=== PATIENT | male | born 1975 | race Caucasian/White ===

== ENCOUNTER 2016-12-02 16:09 | Emergency (ER) | payer BC, OTHER ==
--- NOTE | 2016-12-02 16:17 | PDOC ---
Rapid Medical Evaluation Time Seen by Provider: 12/02/16 16:12 Medical Evaluation: 12/02/16 16:14 Otherwise healthy 41 year old male presenting with inability to swallow and sensation of choking today. He reports he has difficulty swallowing even water. He had vomiting/diarrhea Thursday-Thursday, then developed sore throat; throat is no longer sore, but now has inability to swallow. No respiratory distress. No drooling, stridor, or hoarseness. V/s unremarkable. -CXR -Basic labs -To main ED for further evaluation
[2016-12-02 16:19] VITALS: BMI 24.3
[2016-12-02 16:44] LABS: BASOPHIL 0.9 % (0-2.0); EOSINOPHIL 2.9 % (0-4.5); MCH 31.4 pg (25.7-33.7); MCHC 33.9 g/dl (32.0-35.9); MEAN CELL VOLUME 92.5 fl (80-96); MEAN PLT VOLUME 9.3 fl (7.5-11.1); NEUTROPHILS 49.2 % (42.8-82.8); PLATELET COUNT 201 K/MM3 (134-434); RDW 14.1 % (11.9-15.9); WHITE BLOOD COUNT 8.6 K/mm3 (4.0-10.0)
[2016-12-02 17:08] LABS: INR 1.02 (0.82-1.09); PROTHROMBIN TIME (PATIENT) 11.2 SEC (9.98-11.88)
[2016-12-02] MEDS ORDERED: GlUCAGON HUMAN RECOMBINANT 1 MG/VIAL ONE (17:30)
[2016-12-02] MEDS ORDERED: PANTOPRAZOLE SODIUM 100 ML IVPB ONE (17:35)
[2016-12-02 17:39] LABS: ANION GAP 11 (8-16); CALCIUM 8.7 mg/dL (8.5-10.1); CO2 27 mmol/L (21-32); CREATININE 0.9 mg/dL (0.7-1.3); GLUCOSE,RANDOM 89 mg/dL (74-106); SGOT/AST 46 U/L (15-37); SGPT/ALT 40 U/L (12-78); TOT PROT 7.4 g/dl (6.4-8.2)
[2016-12-02 17:45] LABS: ALK PHOS 56 U/L (45-117); BILIRUBIN,TOTAL 0.6 mg/dL (0.2-1.0)
[2016-12-02] MEDS ORDERED: GLUCAGON 1 MG KIT IVPUSH STA (18:03)
[2016-12-02] MEDS ORDERED: PANTOPRAZOLE SODIUM 40 MG in SODIUM CHLORIDE 100 ML IVPB ONE (18:03)
--- NOTE | 2016-12-02 18:03 | PDOC ---
History of Present Illness <GermanHina Kadi - Last Filed: 12/02/16 18:33> - General History Source: Patient Exam Limitations: No Limitations - History of Present Illness Initial Comments: 12/02/16 18:34 Patient is a 41 year old male with no significant past medical history who presents to the ED with inability to swallowing and choking sensation. Patent reports nausea, vomiting and diarrhea since 11/28 after eating a roast beef sandwich, but denies any abdominal pain. Patient notes that after Thursday he developed difficulty swallowing. He notes that he is not able to eat anything because he feels like it is stuck mid chest. He notes that he can swallow small amounts of water but if he drinks in large amounts he has difficulty swallowing. PSH:Back surgery in april L5-S1 <Tuyet Tsang - Last Filed: 12/02/16 18:37> - General Chief Complaint: Dysphagia Stated Complaint: PCP SENT/DYSPHAGIA Time Seen by Provider: 12/02/16 16:12 Past History - Psycho/Social/Smoking Cessation Hx Anxiety: No Suicidal Ideation: No Smoking History: Current every day smoker Have you smoked in the past 12 months: Yes Number of Cigarettes Smoked Daily: 20 Information on smoking cessation initiated: No Hx Alcohol Use: No Drug/Substance Use Hx: No Substance Use Type: Alcohol <Hina Porter Kadi - Last Filed: 12/02/16 18:33> <Tyuet Tsang - Last Filed: 12/02/16 18:37> - Past Medical History Allergies/Adverse Reactions: Allergies Allergy/AdvReac Type Severity Reaction Status Date / Time No Known Allergies Allergy Verified 12/02/16 16:13 Home Medications: Ambulatory Orders NK [No Known Home Medication] 12/02/16 Review of Systems - Review of Systems Able to Perform ROS?: Yes Comments:: 12/02/16 18:35 CONSTITUTIONAL: Absent: fever, chills, diaphoresis, generalized weakness, malaise, loss of appetite HEENT: Present: difficulty swallowing Absent: rhinorrhea, nasal congestion, throat pain, throat swelling, mouth swelling, ear pain, eye pain, visual Changes CARDIOVASCULAR: Absent: chest pain, syncope, palpitations, irregular heart rate, lightheadedness , peripheral edema RESPIRATORY: Absent: cough, shortness of breath, dyspnea with exertion, orthopnea, wheezing, stridor, hemoptysis GASTROINTESTINAL: Present: nausea, vomiting, diarrhea Absent: abdominal pain, abdominal distension, constipation, melena, hematochezia GENITOURINARY: Absent: dysuria, frequency, urgency, hesitancy, hematuria, flank pain, genital pain MUSCULOSKELETAL: Absent: myalgia, arthralgia, joint swelling SKIN: Absent: rash, itching, pallor HEMATOLOGIC/IMMUNOLOGIC: Absent: easy bleeding, easy bruising, lymphadenopathy, frequent infections ENDOCRINE: Absent: unexplained weight gain, unexplained weight loss, heat intolerance, cold intolerance NEUROLOGIC: Absent: headache, focal weakness or paresthesias, dizziness, unsteady gait, seizure, mental status changes, bladder or bowel incontinence PSYCHIATRIC: Absent: anxiety, depression, suicidal or homicidal ideation, hallucinations. <Tuyet Tsang - Last Filed: 12/02/16 18:37> *Physical Exam - Vital Signs Last Vital Signs Temp Pulse Resp BP Pulse Ox 98.3 F 91 H 18 148/94 100 12/02/16 16:13 12/02/16 16:13 12/02/16 16:13 12/02/16 16:13 12/02/16 16:13 <Hina Porter - Last Filed: 12/02/16 18:33> - Vital Signs Last Vital Signs Temp Pulse Resp BP Pulse Ox 98.3 F 91 H 18 148/94 100 12/02/16 16:13 12/02/16 16:13 12/02/16 16:13 12/02/16 16:13 12/02/16 16:13 - Physical Exam Comments: 12/02/16 18:36 GENERAL: Well developed, well nourished. Awake and alert. No acute distress. HEENT: Normocephalic, atraumatic. PERRLA, EOMI. No conjunctival pallor. Sclera are non- icteric. Moist mucous membranes. Oropharynx is clear. NECK: Supple. Full ROM. No JVD. Carotid pulses 2+ and symmetric, without bruits. No thyromegaly. No lymphadenopathy. CARDIOVASCULAR: Regular rate and rhythm. No murmurs, rubs, or gallops. Distal pulses are 2+ and symmetric. PULMONARY: No evidence of respiratory distress. Lungs clear to auscultation bilaterally. No wheezing, rales or rhonchi. ABDOMINAL: Soft. Non-tender. Non-distended. No rebound or guarding. No organomegaly. Normoactive bowel sounds. MUSCULOSKELETAL Normal range of motion at all joints. No bony deformities or tenderness. No CVA tenderness. EXTREMITIES: No cyanosis. No clubbing. No edema. No calf tenderness. SKIN: Warm and dry. Normal capillary refill. No rashes. No jaundice. NEUROLOGICAL: Alert, awake, appropriate. Cranial nerves 2-12 intact. No deficits to light touch and temperature in face, upper extremities and lower extremities. No motor deficits in the in face, upper extremities and lower extremities. Normoreflexic in the upper and lower extremities. Normal speech. Toes are down-going bilaterally. Gait is normal without ataxia. PSYCHIATRIC: Cooperative. Good eye contact. Appropriate mood and affect. <Tuyet Tsang - Last Filed: 12/02/16 18:37> ED Treatment Course - LABORATORY CBC & Chemistry Diagram: 12/02/16 16:00 12/02/16 16:00 - ADDITIONAL ORDERS Additional order review: Laboratory Results 12/02/16 12/02/16 16:00 16:00 INR 1.02 Sodium 140 Potassium 4.0 Chloride 102 Carbon Dioxide 27 Anion Gap 11 BUN 10 Creatinine 0.9 Creat Clearance w eGFR > 60 Random Glucose 89 Calcium 8.7 Total Bilirubin 0.6 AST 46 H ALT 40 Alkaline Phosphatase 56 Total Protein 7.4 Albumin 4.0 12/02/16 16:00 RBC 5.11 MCV 92.5 MCHC 33.9 RDW 14.1 MPV 9.3 Neutrophils % 49.2 Lymphocytes % 35.5 Monocytes % 11.5 H Eosinophils % 2.9 Basophils % 0.9 <Hina Porter - Last Filed: 12/02/16 18:33> - LABORATORY CBC & Chemistry Diagram: 12/02/16 16:00 12/02/16 16:00 - ADDITIONAL ORDERS Additional order review: Laboratory Results 12/02/16 12/02/16 16:00 16:00 INR 1.02 Sodium 140 Potassium 4.0 Chloride 102 Carbon Dioxide 27 Anion Gap 11 BUN 10 Creatinine 0.9 Creat Clearance w eGFR > 60 Random Glucose 89 Calcium 8.7 Total Bilirubin 0.6 AST 46 H ALT 40 Alkaline Phosphatase 56 Total Protein 7.4 Albumin 4.0 12/02/16 16:00 RBC 5.11 MCV 92.5 MCHC 33.9 RDW 14.1 MPV 9.3 Neutrophils % 49.2 Lymphocytes % 35.5 Monocytes % 11.5 H Eosinophils % 2.9 Basophils % 0.9 - Medications Given in the ED: ED Medications Discontinued Medications Generic Name Dose Route Start Last Admin Trade Name Fausto PRN Reason Stop Dose Admin Glucagon 1 mg 12/02/16 18:03 12/02/16 18:04 Glucagon - IVPUSH 12/02/16 18:04 1 mg ONCE STA Administration <Tuyet Tsang - Last Filed: 12/02/16 18:37> Medical Decision Making - Medical Decision Making 12/02/16 18:28 41 yo male has had dysphagia for last 2 days -it was not preceded by choking on food -he finds that even swallowing fluids quickly is a problem -cxr no mass, no infiltrates normal exam labs unremarkable spoke w Dr Sequeira and the pt will follow up in their office this week -pt is able to swallow his own saliva -he denies fever,chills, any focal neuro problems <Hina Porter - Last Filed: 12/02/16 18:33> - Medical Decision Making 12/02/16 18:[address] Sequeira. Patient will follow up as outpatient with Dr. Sequeira. <Tuyet Tsang - Last Filed: 12/02/16 18:37> *DC/Admit/Observation/Transfer <Hina Porter - Last Filed: 12/02/16 18:33> - Attestations Scribe Attestion: 12/02/16 18:37 Documentation prepared by ZOË Urbina, acting as medical claims assistant for Hina Porter MD. <Tuyet Tsang - Last Filed: 12/02/16 18:37> Diagnosis at time of Disposition: Dysphagia Qualifiers: Dysphagia type: esophageal phase Qualified Code(s): R13.14 - Dysphagia, pharyngoesophageal phase - Referrals Referrals: Laura Sequeira MD [Staff Physician] - Sunday Rosales DO [Staff Physician] - - Patient Instructions Printed Discharge Instructions: DI for Esophageal Dysphagia Additional Instructions: PLEASE FOLLOW UP WITH THE [facility]
[2016-12-02 18:57] VITALS: BP 140/82; PULSE 81; TEMP 98.5
== END 2016-12-02 18:57 | disposition home or self-care (01) ==
LOC: JER 16:09
PROC: 3E033GC Introduction of Other Therapeutic Substance into Peripheral Vein, Percutaneous Approach (ICD-10-PCS; principal; 2016-12-02)
DX: R13.14 Dysphagia, pharyngoesophageal phase (principal); F17.210 Nicotine dependence, cigarettes, uncomplicated
CPT/HCPCS: 36415; 71020-TC; 80053; 85025; 85610; 86850; 86900; 86901; 99283-25

== ENCOUNTER 2023-01-12 04:28 | Day surgery (SDC) | payer OTHER ==
[2023-01-08 12:55] VITALS: BMI 27.9
[2023-01-12] MEDS ORDERED: ceFAZolin SODIUM 1 GM VIAL ONE ×2 (08:21)
[2023-01-12 08:23] VITALS: RESP 18
[2023-01-12 08:55] LABS: INR 0.98 (0.83-1.09); PROTHROMBIN TIME (PATIENT) 11.4 SEC (9.7-13.0)
[2023-01-12 08:58] LABS: ACTIVATED PTT 27.4 SECONDS (25.2-36.5)
[2023-01-12] MEDS ORDERED: BUPIVACAINE HCL/PF 0.25% (2.5MG/ML) 10 ML VIAL ONE (09:05)
[2023-01-12] MEDS ORDERED: ACETAMINOPHEN INJECTION 100 ML IVPB ONE (09:51)
[2023-01-12] MEDS ORDERED: MIDAZOLAM HCL 2 MG/2 ML SINGLE DOSE VIAL ONE (10:02)
[2023-01-12] MEDS ORDERED: ceFAZolin SODIUM 1 GM VIAL IVPB ONE (10:30)
[2023-01-12] MEDS ORDERED: NEOSTIGMINE METHYLSULFATE 0.5 MG/1 ML - 10 ML MDV ONE (10:42)
[2023-01-12] MEDS ORDERED: PROPOFOL 20 ML ONE (10:46)
[2023-01-12 16:51] VITALS: BP 126/72; PULSE 74; TEMP 98.2
== END 2023-01-12 16:51 | disposition home or self-care (01) ==
LOC: JASU-SURG 04:28
PROVIDERS: ATTEND Surgery
PROC: 8E0W4CZ Robotic Assisted Procedure of Trunk Region, Percutaneous Endoscopic Approach (ICD-10-PCS; 2023-01-12)
PROC: 0WUF4JZ Supplement Abdominal Wall with Synthetic Substitute, Percutaneous Endoscopic Approach (ICD-10-PCS; principal; 2023-01-12 12:00)
DX: K42.9 Umbilical hernia without obstruction or gangrene (principal)
CPT/HCPCS: 36415; 85610; 85730; 86850; 86900; 86901; 94760

== ENCOUNTER 2024-02-01 04:35 | Day surgery (SDC) | payer OTHER ==
[2024-01-28 13:37] VITALS: BMI 30.5
[2024-02-01 08:55] VITALS: TEMP 97.8
[2024-02-01 09:25] VITALS: BP 105/62; PULSE 65; RESP 14
== END 2024-02-01 09:50 | disposition home or self-care (01) ==
LOC: JASU-ENDO 04:35
PROVIDERS: ATTEND Internal Medicine Gastroenterology
PROC: 0DBN8ZX Excision of Sigmoid Colon, Via Natural or Artificial Opening Endoscopic, Diagnostic (ICD-10-PCS; 2024-02-01)
PROC: 0DB98ZX Excision of Duodenum, Via Natural or Artificial Opening Endoscopic, Diagnostic (ICD-10-PCS; 2024-02-01)
PROC: 0DB78ZX Excision of Stomach, Pylorus, Via Natural or Artificial Opening Endoscopic, Diagnostic (ICD-10-PCS; 2024-02-01)
PROC: 0DB68ZX Excision of Stomach, Via Natural or Artificial Opening Endoscopic, Diagnostic (ICD-10-PCS; 2024-02-01)
PROC: 0DBM8ZX Excision of Descending Colon, Via Natural or Artificial Opening Endoscopic, Diagnostic (ICD-10-PCS; principal; 2024-02-01 08:00)
DX: Z12.11 Encounter for screening for malignant neoplasm of colon (principal); D12.4 Benign neoplasm of descending colon; Z63.5 Disruption of family by separation and divorce; K57.30 Diverticulosis of large intestine without perforation or abscess without bleeding; K64.8 Other hemorrhoids; K29.50 Unspecified chronic gastritis without bleeding; K31.7 Polyp of stomach and duodenum
CPT/HCPCS: 88305-TC; 88342-TC

== ENCOUNTER 2024-02-04 18:27 | Inpatient (IN) | payer OTHER ==
[2024-02-04 18:34] VITALS: BMI 29.5
[2024-02-04] MEDS ORDERED: ONDANSETRON 4 MG/2 ML VIAL ONE (19:44)
[2024-02-04] MEDS ORDERED: MAGNESIUM SULFATE IN WATER 2 GM/50 ML IVPB IVPB ONE (19:45)
[2024-02-04] MEDS ORDERED: PANTOPRAZOLE SODIUM 40 MG VIAL ONE (19:47)
[2024-02-04 19:58] LABS: BASO % 0.7 % (0-2.0); EOS % 3.3 % (0-4.5); HEMATOCRIT 32.7 % (35.4-49); HEMOGLOBIN 11.3 GM/dL (11.7-16.9); MCH 31.4 pg (25.7-33.7); MCHC 34.6 g/dl (32.0-35.9); MEAN CELL VOLUME 90.9 fl (80-96); MEAN PLT VOLUME 9.4 fl (7.5-11.1); MONO % 10.7 % (3.8-10.2); NEUT % 52.3 % (42.8-82.8); PLATELET COUNT 194 10^3/uL (134-434); RDW 13.9 % (11.9-15.9); WHITE BLOOD COUNT 9.7 K/mm3 (4.0-10.0)
[2024-02-04] MEDS: PANTOPRAZOLE SODIUM 40 MG VIAL IVPUSH ONE (20:00)
[2024-02-04] MEDS: LACTATED RINGERS SOLUTION 1000 ML INFUS.BAG IV ONE (20:00)
[2024-02-04] MEDS: ONDANSETRON 4 MG/2 ML VIAL IVPUSH ONE (20:00)
[2024-02-04 20:06] LABS: POTASSIUM 3.7 mmol/L (3.5-5.1)
[2024-02-04 20:08] LABS: CALCIUM 8.9 mg/dL (8.5-10.1)
[2024-02-04 20:09] LABS: ALBUMIN 3.6 g/dl (3.4-5.0); MAGNESIUM 1.8 mg/dL (1.8-2.4)
[2024-02-04 20:10] LABS: INR 1.02 (0.83-1.09); PROTHROMBIN TIME (PATIENT) 11.7 SEC (9.7-13.0)
[2024-02-04 20:11] LABS: PHOSPHOROUS 2.6 mg/dL (2.5-4.9)
[2024-02-04 20:12] LABS: CREATININE 1.1 mg/dL (0.55-1.3)
[2024-02-04 20:13] LABS: ACTIVATED PTT 26.7 SECONDS (25.2-36.5); BILIRUBIN,TOTAL 0.3 mg/dL (0.2-1); TOT PROT 6.6 g/dl (6.4-8.2)
[2024-02-04] MEDS: LACTATED RINGERS SOLUTION 1,000 ML/1,000 ML INFUS.BAG IV SCH (20:45)
[2024-02-04] MEDS ORDERED: PANTOPRAZOLE SODIUM 40 MG/100 ML BAG IVPB ONE (22:11)
[2024-02-04] MEDS: PANTOPRAZOLE SODIUM 40 MG VIAL IVPUSH SCH (22:24)
[2024-02-05 00:57] LABS: BASO % 0.8 % (0-2.0); EOS % 3.8 % (0-4.5); HEMATOCRIT 27.4 % (35.4-49); HEMOGLOBIN 9.5 GM/dL (11.7-16.9); LYMPH % 40.3 % (8-40); MCH 31.2 pg (25.7-33.7); MCHC 34.6 g/dl (32.0-35.9); MEAN CELL VOLUME 90.4 fl (80-96); MEAN PLT VOLUME 8.9 fl (7.5-11.1); MONO % 10.6 % (3.8-10.2); NEUT % 44.5 % (42.8-82.8); PLATELET COUNT 164 10^3/uL (134-434); RBC 3.04 M/mm3 (4.00-5.60); WHITE BLOOD COUNT 8.5 K/mm3 (4.0-10.0)
[2024-02-05 07:01] LABS: EOS % 4.8 % (0-4.5); HEMATOCRIT 26.8 % (35.4-49); HEMOGLOBIN 9.2 GM/dL (11.7-16.9); LYMPH % 37.9 % (8-40); MCH 31.4 pg (25.7-33.7); MCHC 34.3 g/dl (32.0-35.9); MEAN CELL VOLUME 91.4 fl (80-96); MEAN PLT VOLUME 9.2 fl (7.5-11.1); MONO % 11.4 % (3.8-10.2); NEUT % 44.9 % (42.8-82.8); PLATELET COUNT 154 10^3/uL (134-434); RBC 2.93 M/mm3 (4.00-5.60); RDW 14.1 % (11.9-15.9)
[2024-02-05 07:31] LABS: ALBUMIN 2.9 g/dl (3.4-5.0)
[2024-02-05 07:32] LABS: CALCIUM 7.7 mg/dL (8.5-10.1); MAGNESIUM 1.8 mg/dL (1.8-2.4)
[2024-02-05 07:33] LABS: BLOOD UREA NITROGEN 25.8 mg/dL (7-18)
[2024-02-05 07:35] LABS: CREATININE 0.9 mg/dL (0.55-1.3); PHOSPHOROUS 2.4 mg/dL (2.5-4.9)
[2024-02-05 07:37] LABS: BILIRUBIN,TOTAL 0.4 mg/dL (0.2-1)
[2024-02-05 07:38] LABS: TOT PROT 5.2 g/dl (6.4-8.2)
[2024-02-05] MEDS ORDERED: ENOXAPARIN NA (PORCINE) 40 MG/0.4 ML DISP.SYRIN SQ SCH (10:00)
[2024-02-05] MEDS: NAPH,MB-DB/K PH,MBDB POWDER PACKET PO ONE (10:41)
[2024-02-05 13:00] LABS: BASO % 0.9 % (0-2.0); EOS % 5.6 % (0-4.5); HEMATOCRIT 28.4 % (35.4-49); HEMOGLOBIN 9.8 GM/dL (11.7-16.9); LYMPH % 44.2 % (8-40); MCH 31.1 pg (25.7-33.7); MCHC 34.4 g/dl (32.0-35.9); MEAN CELL VOLUME 90.5 fl (80-96); MEAN PLT VOLUME 8.7 fl (7.5-11.1); MONO % 9.4 % (3.8-10.2); NEUT % 39.9 % (42.8-82.8); PLATELET COUNT 157 10^3/uL (134-434); RBC 3.14 M/mm3 (4.00-5.60); RDW 13.9 % (11.9-15.9); WHITE BLOOD COUNT 6.3 K/mm3 (4.0-10.0)
[2024-02-05 15:27] LABS: HEMATOCRIT 25.8 % (35.4-49); HEMOGLOBIN 8.9 GM/dL (11.7-16.9); MCH 31.1 pg (25.7-33.7); MCHC 34.3 g/dl (32.0-35.9); MEAN CELL VOLUME 90.7 fl (80-96); MEAN PLT VOLUME 8.9 fl (7.5-11.1); PLATELET COUNT 153 10^3/uL (134-434); RBC 2.84 M/mm3 (4.00-5.60); RDW 13.7 % (11.9-15.9); WHITE BLOOD COUNT 5.7 K/mm3 (4.0-10.0)
[2024-02-06 07:19] LABS: BASO % 0.8 % (0-2.0); EOS % 6.4 % (0-4.5); HEMATOCRIT 25.7 % (35.4-49); HEMOGLOBIN 8.8 GM/dL (11.7-16.9); LYMPH % 36.3 % (8-40); MCH 31.4 pg (25.7-33.7); MCHC 34.2 g/dl (32.0-35.9); MEAN CELL VOLUME 91.8 fl (80-96); MEAN PLT VOLUME 9.3 fl (7.5-11.1); MONO % 9.3 % (3.8-10.2); NEUT % 47.2 % (42.8-82.8); PLATELET COUNT 152 10^3/uL (134-434); RDW 14.3 % (11.9-15.9); WHITE BLOOD COUNT 5.7 K/mm3 (4.0-10.0)
[2024-02-06 07:39] LABS: POTASSIUM 3.9 mmol/L (3.5-5.1)
[2024-02-06 07:44] LABS: ALBUMIN 2.9 g/dl (3.4-5.0); BLOOD UREA NITROGEN 10.7 mg/dL (7-18); CALCIUM 7.5 mg/dL (8.5-10.1)
[2024-02-06 07:45] LABS: MAGNESIUM 1.9 mg/dL (1.8-2.4)
[2024-02-06 07:47] LABS: CREATININE 0.7 mg/dL (0.55-1.3); PHOSPHOROUS 2.6 mg/dL (2.5-4.9)
[2024-02-06 07:48] LABS: TOT PROT 5.3 g/dl (6.4-8.2)
[2024-02-06 07:49] LABS: BILIRUBIN,TOTAL 0.4 mg/dL (0.2-1)
[2024-02-06 23:29] VITALS: RESP 16
[2024-02-07 05:55] VITALS: BP 92/62; PULSE 62; TEMP 97.9
[2024-02-07 07:09] LABS: POTASSIUM 4.1 mmol/L (3.5-5.1)
[2024-02-07 07:11] LABS: BASO % 1.2 % (0-2.0); EOS % 5.9 % (0-4.5); HEMATOCRIT 26.5 % (35.4-49); HEMOGLOBIN 9.2 GM/dL (11.7-16.9); LYMPH % 38.4 % (8-40); MCH 32.2 pg (25.7-33.7); MCHC 34.8 g/dl (32.0-35.9); MEAN CELL VOLUME 92.8 fl (80-96); MEAN PLT VOLUME 9.3 fl (7.5-11.1); MONO % 9.3 % (3.8-10.2); NEUT % 45.2 % (42.8-82.8); PLATELET COUNT 165 10^3/uL (134-434); RBC 2.86 M/mm3 (4.00-5.60); WHITE BLOOD COUNT 6.4 K/mm3 (4.0-10.0)
[2024-02-07 07:16] LABS: CREATININE 0.8 mg/dL (0.55-1.3)
== END 2024-02-07 11:38 | disposition home or self-care (01) | DRG 378 ==
LOC: JER 18:27 → JERBED 20:55 → OBSVTOIN 21:39 → J4S 23:34
PROVIDERS: ADMIT Internal Medicine; ATTEND Internal Medicine
PROC: 0W3P8ZZ Control Bleeding in Gastrointestinal Tract, Via Natural or Artificial Opening Endoscopic (ICD-10-PCS; principal; 2024-02-05 10:15)
DX: K92.2 Gastrointestinal hemorrhage, unspecified (principal); D62 Acute posthemorrhagic anemia; R42 Dizziness and giddiness; I95.89 Other hypotension; K29.50 Unspecified chronic gastritis without bleeding
CPT/HCPCS: 36415; 71045-TC-FY; 80048; 80053; 82272; 82550; 82962; 83735; 84100; 84484; 85025; 85027; 85610; 85730; 86850; 86900; 86901; 86922; 93005; 93010; 99285-25; G0378